=== PATIENT | female | born 1980 | race Caucasian/White ===

== ENCOUNTER 2023-11-30 14:34 | Outpatient (CLI) | payer BC | END 2023-11-30 14:35 | disposition home or self-care (01) | LOC: CSHULT 14:34 | PROVIDERS: ATTEND Podiatrist | DX: G57.62 Lesion of plantar nerve, left lower limb (principal) | CPT/HCPCS: 76882 ==

== ENCOUNTER 2023-12-18 12:33 | Emergency (ER) | payer BC ==
[2023-12-18] MEDS ORDERED: Rivaroxaban 15 MG TAB PO SCH (15:15)
== END 2023-12-18 15:25 | disposition home or self-care (01) ==
LOC: CSHERS 12:33
DX: I82.402 Acute embolism and thrombosis of unspecified deep veins of left lower extremity (principal)

== ENCOUNTER 2024-04-20 14:37 | Outpatient (CLI) | payer BC | END 2024-04-20 14:38 | disposition home or self-care (01) | LOC: CSHULT 14:37 | PROVIDERS: ATTEND Family Medicine | DX: R31.9 Hematuria, unspecified (principal) | CPT/HCPCS: 76770 ==